=== PATIENT | female | born 1995 | race Hispanic/Latino ===

== ENCOUNTER 2017-06-13 02:07 | Emergency (ER) | payer OTHER ==
[2017-06-13 02:14] VITALS: TEMP 98
[2017-06-13] MEDS ORDERED: Sodium Chloride 0.9% 1,000 ML IV STA (02:15)
--- NOTE | 2017-06-13 02:43 | ED PDOC ---
HPI: Psych/Substance Abuse Time Seen by Provider: 06/13/17 02:11 Chief Complaint (Nursing): Alcohol Ingestion Chief Complaint (Provider): Alcohol Ingestion ED Caveat: Intoxicated History Per: EMS History/Exam Limitations: intoxication Onset/Duration Of Symptoms: Mins (prior to arrival) Current Symptoms Are (Timing): Still Present Additional Complaint(s): Guicho Marquis is a 21 year old female who presents to the emergency department via EMS for an evaluation of public intoxication associated with multiple episodes of vomiting status post friends found her "passed out at the bar" prior to arrival. Unable to obtain medical history due to patient's current state of intoxication. PMD: none provided Past Medical History Reviewed: Nursing Documentation, Vital Signs, Unable To Obtain (intoxicated) Vital Signs: Last Vital Signs Temp 98 F 06/13/17 02:12 Pulse 133 H 06/13/17 02:12 Resp 18 06/13/17 02:12 BP 137/102 H 06/13/17 02:12 Pulse Ox 100 06/13/17 02:12 - Family History Family History: States: Unknown Family Hx - Allergies Allergies/Adverse Reactions: Allergies Allergy/AdvReac Type Severity Reaction Status Date / Time No Known Allergies Allergy Verified 06/13/17 02:12 Review of Systems Review Of Systems: ROS cannot be obtained secondary to pt's inabilty to answer questions. (intoxicated) Physical Exam - Reviewed Nursing Documentation Reviewed: Yes Vital Signs Reviewed: Yes - Physical Exam Appears: Positive for: Well, Non-toxic, No Acute Distress Head Exam: Positive for: ATRAUMATIC, NORMAL INSPECTION, NORMOCEPHALIC Neurologic/Psych: Positive for: Mood/Affect (flat; intoxicated), Other (easily arousable; slurred speech). Negative for: Oriented - Laboratory Results Result Diagrams: 06/13/17 02:51 06/13/17 02:51 - ECG O2 Sat by Pulse Oximetry: 100 (RA) Pulse Ox Interpretation: Normal Medical Decision Making Medical Decision Making: Initial Impression: Alcohol intoxication Initial Plan: * Alcohol serum * CMP * Drug screen * Urine * CBC * NS 1,000ml IV per 1,000mls/hr * Zofran inj 4mg IV * Accucheck Time: 0700 --Patient was signed out to Dr. Rajeev Riojas III. Pending clinical sobriety. Scribe Attestation: Documented by Kelsie Vazquez, acting as a scribe for Jarred Hill MD. Provider Scribe Attestation: All medical record entries made by the Scribe were at my direction and personally dictated by me. I have reviewed the chart and agree that the record accurately reflects my personal performance of the history, physical exam, medical decision making, and the department course for this patient. I have also personally directed, reviewed, and agree with the discharge instructions and disposition. Disposition - Clinical Impression Clinical Impression: Alcohol abuse - Patient ED Disposition Is Patient to be Admitted: Transfer of Care - Disposition Disposition: Transfer of Care Disposition Time: 07:00 Condition: STABLE Additional Instructions: Recommend alcohol in moderation only. Patient Signed Over To: Rajeev Riojas III
[2017-06-13 02:55] LABS: BASO # 0.1 K/uL (0.0-0.2); BASO % 0.4 % (0.0-2.0); EOS # 0.2 K/uL (0.0-0.7); EOS % 1.2 % (0.0-4.0); HEMATOCRIT 40.5 % (34.0-47.0); LYMPH # 5.7 K/uL (1.0-4.3); LYMPH % 43.4 % (20.0-40.0); MEAN CELL VOLUME 86.2 fl (81.0-99.0); MEAN CORPUSCULAR HEMOGLOBIN 28.9 pg (27.0-31.0); MEAN CORPUSCULAR HGB CONC 33.5 g/dL (33.0-37.0); MEAN PLATELET VOLUME 8.1 fl (7.2-11.7); MONO # 0.9 K/uL (0.0-0.8); MONO % 6.8 % (0.0-10.0); NEUT # 6.3 K/uL (1.8-7.0); NEUT % 48.2 % (50.0-75.0); NRBC % 0.1 % (0.0-0.0); RED CELL DISTRIBUTION WIDTH 12.6 % (11.5-14.5); WHITE BLOOD COUNT 13.1 K/uL (4.8-10.8)
[2017-06-13 03:04] LABS: ALB/GLOB RATIO 1.4 (1.0-2.1); ALCOHOL SERUM 261 mg/dl (0-10); ALKALINE PHOSPHATASE 74 U/L (38-126); ALT/SGPT 42 U/L (9-52); AST/SGOT 27 U/L (14-36); BILIRUBIN,TOTAL 0.1 mg/dl (0.2-1.3); BLOOD UREA NITROGEN 7 mg/dl (7-17); CALCIUM 8.8 mg/dL (8.4-10.2); CARBON DIOXIDE 23 mmol/L (22-30); CHLORIDE 107 mmol/L (98-107); GFR AFRICAN-AMERICAN > 60; GLUCOSE,RANDOM 150 mg/dL (65-105); POTASSIUM 3.2 MMOL/L (3.6-5.0); SODIUM 146 mmol/l (132-148); TOTAL PROTEIN 7.3 G/DL (6.3-8.2)
--- NOTE | 2017-06-13 07:04 | ED PDOC ---
- Laboratory Results Result Diagrams: 06/13/17 02:51 06/13/17 02:51 - ECG O2 Sat by Pulse Oximetry: 100 (RA) Medical Decision Making Medical Decision Makinam pending sobriety 840am awake, alert, stable gait, clear speech. DC from ED. Disposition - Clinical Impression Clinical Impression: Alcohol abuse - POA Present On Arrival: None - Disposition Disposition: Routine/Home Disposition Time: 09:00 Condition: STABLE Additional Instructions: Recommend alcohol in moderation only.
[2017-06-13 09:12] VITALS: BP 110/59; PULSE 88; RESP 97
[2017-06-13 23:31] VITALS: O2SAT 100
== END 2017-06-13 08:53 | disposition home or self-care (01) ==
LOC: H.ER 02:07
DX: F10.129 Alcohol abuse with intoxication, unspecified (principal)
CPT/HCPCS: 80053; 80320; 81025; 82948; 85025; 96360; 99284; J2405; J7040